=== PATIENT | male | born 1975 | race Caucasian/White ===

== ENCOUNTER 2023-05-09 07:57 | Inpatient (IN) ==
--- NOTE | 2023-04-20 10:46 | PAT Medication Instructions ---
Medication Instructions Date of Service April 20, 2023 Home Medications Medication Instructions Recorded oxycodone 5 mg tablet 5 mg PO Q6H PRN pain, severe #20 05/25/22 tabs tramadol 50 mg tablet 50 mg PO Q6H PRN pain, moderate 05/25/22 #20 tabs cyclobenzaprine 10 mg tablet 10 mg PO TID PRN muscle spasms levothyroxine 175 mcg tablet 175 mcg PO QAM mometasone 100 mcg/actuation HFA aerosol inhaler 2 puff inhalation QAM montelukast 10 mg tablet 10 mg PO QAM naproxen 500 mg tablet,delayed release 500 mg PO BID PRN Pain omeprazole 20 mg tablet,delayed release 20 mg PO QAM zolmitriptan 5 mg disintegrating tablet 5 mg PO UD PRN migraines oxycodone 5 mg tablet 5 mg PO Q6H PRN pain, severe tramadol 50 mg tablet 50 mg PO Q6H PRN pain, moderate albuterol sulfate 90 mcg/actuation breath activated powder inhaler 1 inh inhalation QID PRN Wheezing ASK your surgeon for instructions naproxen 500 mg tablet,delayed release 500 mg PO BID PRN Pain DO NOT take the morning of surgery cyclobenzaprine 10 mg tablet 10 mg PO TID PRN muscle spasms montelukast 10 mg tablet 10 mg PO QAM Take morning of surgery With a small sip of water, OTHERWISE NOTHING TO EAT OR DRINK AFTER MIDNIGHT: levothyroxine 175 mcg tablet 175 mcg PO QAM mometasone 100 mcg/actuation HFA aerosol inhaler 2 puff inhalation QAM omeprazole 20 mg tablet,delayed release 20 mg PO QAM zolmitriptan 5 mg disintegrating tablet 5 mg PO UD PRN migraines (if needed) oxycodone 5 mg tablet 5 mg PO Q6H PRN pain, severe (if needed) tramadol 50 mg tablet 50 mg PO Q6H PRN pain, moderate (if needed) albuterol sulfate 90 mcg/actuation breath activated powder inhaler 1 inh inhalation QID PRN Wheezing (use if needed; please bring rescue inhaler with you to hospital day of surgery if possible) Take evening before surgery cyclobenzaprine 10 mg tablet 10 mg PO TID PRN muscle spasms (if needed) zolmitriptan 5 mg disintegrating tablet 5 mg PO UD PRN migraines (if needed) oxycodone 5 mg tablet 5 mg PO Q6H PRN pain, severe (if needed) tramadol 50 mg tablet 50 mg PO Q6H PRN pain, moderate (if needed) albuterol sulfate 90 mcg/actuation breath activated powder inhaler 1 inh inhalation QID PRN Wheezing (if needed) Other Notes If you have any questions please call us at [phone] or [phone] or [phone] or [phone]
--- NOTE | 2023-04-25 09:36 | Anesthesiology Consultation ---
Date of Service April 25, 2023 Assessment & Plan (1) Encounter for pre-operative examination: - Check BSG AM DOS (Glucose elevated at 165 on preop labs. No reported hx of diabetes/prediabetes. Will recheck BSG DOS) - Infectious disease screening: Per assessment on 04/25/23: No known infectious disease contacts or current infectious disease symptoms. No noted Covid positive test result in past 90 days. - Right SI joint fusion (05/25/22): Grade view 1, MAC#4, ETT 7.5 at [facility] Chart Review Chart Review: Acceptable Risk for Surgery and Patient seen in Pre Admission Testing Teaching & Discussion Pre-Anesthesia Teaching/Discussion Notes: Instructed NPO after midnight before surgery,except medications with 15 cc of water. Medication instructions provided according to the PAT guidelines. History Surgery Operation Date: 05/09/23 09:25 Proposed Procedures p L4-L5 Decompression and Fusion, Spinal Cord Monitoring - Misha Sanz, Height/Weight Height: 6 ft Weight: 108.7 kg Allergies Allergy/AdvReac Type Severity Reaction Status Date / Time hydromorphone [From Dilaudid] AdvReac Intermediate Vomiting Verified 04/18/23 08:31 Medications Home Medications Medication Instructions Recorded Confirmed Last Taken cyclobenzaprine 10 mg tablet 10 mg PO TID PRN muscle spasms 05/19/22 04/18/23 05/23/22 levothyroxine 175 mcg tablet 175 mcg PO QAM 05/19/22 04/18/23 05/25/22 03:45 mometasone 100 mcg/actuation HFA 2 puff inhalation QAM 05/19/22 04/18/23 05/24/22 06:30 aerosol inhaler montelukast 10 mg tablet 10 mg PO QAM 05/19/22 04/18/23 05/25/22 03:30 naproxen 500 mg tablet,delayed 500 mg PO BID PRN Pain 05/19/22 04/18/23 5 Days Ago release ~05/20/22 omeprazole 20 mg tablet,delayed 20 mg PO QAM 05/19/22 04/18/23 05/25/22 03:30 release zolmitriptan 5 mg disintegrating 5 mg PO UD PRN migraines 05/19/22 04/18/23 3 Weeks Ago tablet ~05/04/22 oxycodone 5 mg tablet 5 mg PO Q6H PRN pain, severe #20 05/25/22 04/18/23 Unknown tabs tramadol 50 mg tablet 50 mg PO Q6H PRN pain, moderate 05/25/22 04/18/23 Unknown #20 tabs albuterol sulfate 90 mcg/actuation 1 inh inhalation QID PRN Wheezing 04/18/23 04/18/23 Unknown breath activated powder inhaler Past Medical History Medical History Asthma GERD (gastroesophageal reflux disease) [place] of [place] body aches, pain, sore throat, fatigue > resolved 2020 (tested at [facility] body aches, pain, sore throat, fatigue > resolved Hx of migraines Hypothyroidism Seasonal allergies Exercise / Class Metabolic Activity II 4-5 Yardwork/Stairs/Walk up hill (one FS (no CP, no SOB)) Past Surgical History Surgical History History of esophagogastroduodenoscopy (EGD) Hx of appendectomy Hx of colonoscopy Hx of exploratory laparotomy Appendectomy > nicked bowel complications, converted to open procedure to repair bowel perforation Hx of inguinal hernia repair Right Hx of tonsillectomy Hx of vasectomy + 2 reversals S/P fusion of sacroiliac joint Right SI joint fusion (05/25/22): Grade view 1, MAC#4, ETT 7.5 at [facility] Past Anesthesia History No Hx of Anesthesia Complications and No Family Hx of Anesthesia Complications History of PONV No Hx of PONV and No Hx of Motion Sickness Social History Smoking Status: Current every day smoker tobacco type: cigarettes Smoking cigarettes per day: 10-15 cigs per day Do You Dip or Chew Tobacco: No Hx Alcohol Use: Yes Alcohol type: beer alcohol intake frequency: holidays/special occasions only Hx Substance Use: No substance use type: does not use Review of Systems Occasional wheezing r/t asthma, unchanged/stable Patient denies chest pain, shortness of breath, dyspnea on exertion, fever, chills, cough, palpitations. Physical Exam Vital Signs VITALS BP 125/80 (baseline BP low-normal range per patient) P 93 TEMP 98.1 SP02 95%RA RESP 16 PHYSICAL Full cervical extension range of motion. Full TMJ range of motion. TMD 3 finger breaths Mallampati Score 3 Dentition: missing molars, + crowns (molars) Lungs: clear throughout to auscultation Cardiac: regular rate and rhythm, no murmurs noted Spine: normal Carotid arteries: negative bruit Extremities: no LE edema Lab Results Anesthesia Preop Results Results Anesthesia Widget: WBC 8.15 K/ul (4.8-10.8) 04/25/23 Hgb 14.9 g/dl (14.0-18.0) 04/25/23 Hct 44.0 % (42.0-52.0) 04/25/23 Plt 285 K/uL (130-400) 04/25/23 Na 140 mmol/L (136-145) 04/25/23 K 3.9 mmol/L (3.5-5.1) 04/25/23 Cl 108 mmol/L (98-107) H 04/25/23 CO2 25 mmol/L (21-32) 04/25/23 BUN 13 mg/dl (6-23) 04/25/23 Creat 0.95 mg/dl (0.6-1.4) 04/25/23 Glucose Level 165 mg/dl (70-99(Fasting)) H 04/25/23 PT 10.8 Seconds (9.0-12.0) 04/25/23 PTT 27.3 Seconds (21.0-31.0) 04/25/23 INR 1.0 (0.9-1.1) 04/25/23 Urine Color Yellow 04/25/23 Urine Appearance Clear (Clear) 04/25/23 Urine pH 7.5 (4.5-7.5) 04/25/23 Urine Specific [place] 1.011 (1.000-1.030) 04/25/23 Urine Protein Negative (Negative) 04/25/23 Urine Glucose (UA) Negative (Negative) 04/25/23 Urine Ketones Negative (Negative) 04/25/23 Urine Blood Negative (Negative) 04/25/23 Urine Nitrite Negative (Negative) 04/25/23 Urine Bilirubin Negative (Negative) 04/25/23 Urine Urobilinogen Negative (Negative) 04/25/23 Urine Leukocyte Esterase Negative (Negative) 04/25/23 Blood Type A Negative 04/25/23 Antibody Screen NEGATIVE 04/25/23 Testing Electrocardiogram Date: 05/13/22 NSR, rate 93 bpm Chest X-Ray Date: 05/13/22 No acute process
[~2023-05-09 07:57] MED LIST: ACETAMINOPHEN 500 MG TAB PO SCH; CeleBREX 200 MG CAP PO SCH; DEXAMETHASONE SOD INJ 4 MG/ML VIAL ONE; GABAPENTIN 900 MG DOSE PO SCH; LIDOCAINE 2% 2 ML VIAL/AMP(20MG/ML) INFIL ONE; LR 15ML/HR IV SCH; LR 60ML/HR IV SCH; MIDAZOLAM HCL 1 MG/ML 2ML VIAL ONE; ONDANSETRON INJ 2 MG/ML 2 ML VIAL ONE; PROPOFOL IV EMULSION 10 MG/ML 20 ML VIAL IV ONE; ROCURONIUM BROMIDE 10 MG/ML 5 ML VIAL IV ONE; SUGAMMADEX SODIUM 200 MG/2 ML VIAL IV ONE; ceFAZolin 2000MG 2,000 MG/15 ML SYR IV SCH; fentaNYL citrate PF 100 MCG/2 ML VIAL ONE
[2023-05-09] MEDS ORDERED: HYDROmorphone INJ 1 MG/ML SYRINGE IV PRN ×2 (11:23→17:05)
[2023-05-09] MEDS ORDERED: ATROPINE SULFATE 0.1 MG/ML 10ML SYR IV PRN (11:23)
[2023-05-09] MEDS ORDERED: ePHEDrine sulfate 50 MG/ML AMP IV PRN (11:23)
[2023-05-09] MEDS ORDERED: ONDANSETRON INJ 2 MG/ML 2 ML VIAL IV PRN ×2 (11:23→17:05)
--- NOTE | 2023-05-09 12:08 | History & Physical Bridge Note ---
Date of Service May 09, 2023 History & Physical Bridge Note I have examined the patient, reviewed the History & Physical and in the interval since the performance of the History & Physical I have noted the following changes of clinical significance: no changes noted
--- NOTE | 2023-05-09 12:09 | History & Physical Report ---
Date of Service May 09, 2023 Assessment & Plan (1) Neurogenic claudication due to lumbar spinal stenosis: Plan: L4-L5 decompression and fusion History of Present Illness Chief Complaint: Back and leg pain Primary Care Provider: [facility] This is a 48-year-old male who presents with chronic persistent back and leg pain after failing course of nonoperative care is here for surgical invention. Allergies Allergy/AdvReac Type Severity Reaction Status Date / Time No Known Allergies Allergy Unverified 05/09/23 08:18 Home Medications Medication Instructions Recorded Confirmed Type cyclobenzaprine 10 mg tablet 10 mg PO TID PRN muscle spasms 05/19/22 05/09/23 History levothyroxine 175 mcg tablet 175 mcg PO QAM 05/19/22 05/09/23 History mometasone 100 mcg/actuation HFA 2 puff inhalation QAM 05/19/22 05/09/23 History aerosol inhaler montelukast 10 mg tablet 10 mg PO QAM 05/19/22 05/09/23 History naproxen 500 mg tablet,delayed 500 mg PO BID PRN Pain 05/19/22 05/09/23 History release omeprazole 20 mg tablet,delayed 20 mg PO QAM 05/19/22 05/09/23 History release zolmitriptan 5 mg disintegrating 5 mg PO UD PRN migraines 05/19/22 05/09/23 History tablet oxycodone 5 mg tablet 5 mg PO Q6H PRN pain, severe #20 05/25/22 05/09/23 Rx tabs tramadol 50 mg tablet 50 mg PO Q6H PRN pain, moderate 05/25/22 05/09/23 Rx #20 tabs albuterol sulfate 90 mcg/actuation 1 inh inhalation QID PRN Wheezing 04/18/23 05/09/23 History breath activated powder inhaler Past Med/Surg History Medical History Asthma GERD (gastroesophageal reflux disease) [place] of [place] body aches, pain, sore throat, fatigue > resolved 2020 (tested at [facility] body aches, pain, sore throat, fatigue > resolved Hx of migraines Hypothyroidism Seasonal allergies Surgical History History of esophagogastroduodenoscopy (EGD) Hx of appendectomy Hx of colonoscopy Hx of exploratory laparotomy Appendectomy > nicked bowel complications, converted to open procedure to repair bowel perforation Hx of inguinal hernia repair Right Hx of tonsillectomy Hx of vasectomy + 2 reversals S/P fusion of sacroiliac joint Right SI joint fusion (05/25/22): Grade view 1, MAC#4, ETT 7.5 at [facility] Social History Smoking Status: Current every day smoker Tobacco Type: Cigarettes Cigarettes Per Day: 10-15 cigs per day; Second Hand Exposure: No; Do You Dip or Chew Tobacco: No; Tobacco Cessation Education Requested by Patient: No Hx Alcohol Use: Yes Alcohol type: beer Hx Substance Use: No Preferred Language: Marshallese Communication Ability: Effective Test Facility Engineer Required: No Beliefs That Will Affect Care: None Current Living Situation: Spouse Other Information That Helps Us Care for You: No Feels Safe at Home: Yes Safety Concerns: Feels Safe At This Time Assistive Devices: Glasses Physical Exam Physical Exam: Patient is alert and oriented Heart regular rhythm Lungs clear Results & Data Results & Data Vital Signs (Past 12 Hours) Vital Signs Temp Pulse Resp BP Pulse Ox O2 Del Method 05/09/23 08:18 36.5 C 97 H 18 139/91 95 Room Air
[2023-05-09] MEDS ORDERED: ceFAZolin 330 MG/ML 1 GM VIAL ONE (12:23)
[2023-05-09] MEDS ORDERED: BUPIVACAINE/EPINEPHRINE 0.25% 1:200,000 30 ML VIAL ONE (12:23)
[2023-05-09] MEDS ORDERED: HYDROmorphone INJ 2 MG/ML SYR/VIAL ONE (13:09)
[2023-05-09] MEDS ORDERED: FLOSEAL HEMOSTATIC MATRIX 10ML TOP ONE (14:04)
--- NOTE | 2023-05-09 14:22 | Operative Report ---
Post Operative Report Pre & Post Diagnosis Operation Date: 05/09/23 09:25 Pre-Op Diagnosis: Neurogenic Claudication Due to Lumbar Spinal Stenosis L4-L5 Post-Op Diagnosis: Neurogenic Claudication Due to Lumbar Spinal Stenosis L4-L5 I identified the patient and participated in the time-out.: Yes Procedure Operation Date: 05/09/23 09:25 Actual Procedures #1 lumbar decompression bilaterally facetectomies and foraminotomies L4-5 per #2 posterior spinal fusion L4-5 #3 placed posterior instrumentation L4-5.. #4 interbody fusion L4-5. #5 placement spiral 14 x 26 mm x 2 at L4-5. #6 placement of locally harvested morselized autograft and posterior gutters. #7 placement of I factor combined with the talus in the interbody space and posterior gutters.. Surgeon Misha Sanz, DO [employer] Stitcher oTri Omer Estimated Blood Loss 180 Findings See Below The patient is 6 foot tall weighing over 107 kg and BMI in excess of 32. The patient's body habitus did contribute to significant technical difficulty requiring her deepest retractors longer instruments in order to perform this procedure. This at least 50% increased operative time. Specimens None Indications This is a 48-year-old male who presents above-mentioned diagnosis of failed since course of nonoperative care is here for surgical invention. Description of Procedure Patient was met with identified informed consent obtained. Patient was then taken the operative suite underwent patient placed in a prone position the [facility] top Kristopher frame. All bony promises well-padded I suspected to ensure no external precipice spine. This point the lumbar spine was prepped and draped in a sterile fashion. Sharp dissection with the assistance of Bovie cautery to form down to and exposing the lamina and transverse processes of L4 and L5 bilaterally. From a caudal cephalad fashion complete laminectomy of L4 was performed including bilateral medial facetectomies and foraminotomies addressing all spinal stenosis. Pedicle screws were then placed in L4-5 bilaterally with assistance of fluoroscopy and appropriate size thais placed. By way of transforaminal approach on the right and discectomy L4-5 was performed endplates guarded to subcortical bleeding bone and a 14 x 26 mm Spira cage with I factor tapped in position. Then proceeded to the left transforaminal region completed the discectomy. Then placed to subcortical bleeding bone and placed a second 14 x 26 mm prior cage with I factor into position. The rods were then compressed locked in final position bilaterally. Transverse processes of L4-5 burred to subcortical bleeding bone. I factor combined with the talus and locally harvested morselized autograft placed in the posterior gutters. 15 round PETRA drain inserted. The incision was then closed with 1 Vicryl to fascia 2-0 Vicryl subcutaneously and 4 Monocryl for final skin closure. Steri-Strips sterile dressings placed. Patient waken taken to PACU in stable condition. Please note spinal cord monitoring was utilized at the procedure no changes noted. Lastly Tori Omer was present for critical components of the procedure. I attest to the content of the Intraoperative Record and any orders documented therein. Any exceptions are noted below.
--- NOTE | 2023-05-09 14:56 | Fluoroscopy Report ---
FL lumbar spine 2-3V CLINICAL HISTORY: L4-L5 DECOMP/FUSION COMPARISON STUDY: None. FLUOROSCOPY TIME: 20 seconds FLUOROSCOPY IMAGES: 4 Ka,r: 16.6 mGy FINDINGS: Posterior decompression and fusion with pedicle screws and rods at L4-L5. The hardware appe ars intact. Disc spacers are in place. Fusion hardware seen within the right sacroiliac joint. There is a surgical drain at the laminectomy site. No additional radiopaque foreign bodies identified. IMPRESSION: Fluoroscopic assistance provided for L4-L5 posterior decompression and fusion. The hardwa re appears intact. No additional radiopaque foreign bodies identified. ACT 112: Negative or not required by law. Electronically signed by: Kofi Delgadillo M.D. 05/09/2023 2:55 PM
[2023-05-09] MEDS ORDERED: ALBUT/IPRATROP 3MG/0.5MG NEB 3 ML VIAL NEB STA (15:23)
--- NOTE | 2023-05-09 15:23 | Anesthesiology Progress Note ---
Date of Service May 09, 2023 Anesthesia Post Procedure Vital Signs Vital Signs: Temp Pulse Resp BP Pulse Ox O2 Del Method O2 Flow Rate 05/09/23 15:20 95 H 13 113/91 94 Oxymask 9 05/09/23 15:10 95 H 12 124/78 97 Oxymask 9 05/09/23 15:00 95 H 12 138/107 H 93 Oxymask 9 05/09/23 14:53 36.1 C L 95 H 12 120/75 94 Oxymask 9 05/09/23 08:18 36.5 C 97 H 18 139/91 95 Room Air Pain Intensity Right Buttock: Pain Intensity: 4 Transfer of Care Handoff Completed per policy Notes Mental Status: alert / awake / arousable Patient Amnestic to Procedure: Yes Nausea / Vomiting: adequately controlled Pain: adequately controlled Airway Patency, RR, SpO2: stable & adequate BP & HR: stable & adequate Hydration State: stable & adequate Anesthetic Complications: no major complications apparent
[2023-05-09] MEDS ORDERED: ALBUT/IPRATROP 3MG/0.5MG NEB 3 ML VIAL ONE (15:24)
[2023-05-09] MEDS ORDERED: HYDROmorphone INJ 0.5 MG/0.5 ML SYR IV PRN (17:05)
[2023-05-09] MEDS ORDERED: PROMETHAZINE HCL 12.5 MG in SODIUM CHLORIDE 0.9% 50 ML IV PRN (17:05)
[2023-05-09] MEDS ORDERED: SOD PHOSPHATE/SOD BIPHOSPHATE ENEMA 132 ML BTL PR PRN (17:05)
[2023-05-09] MEDS ORDERED: LORazepam 0.5 MG TAB PO PRN (17:05)
[2023-05-09] MEDS ORDERED: diphenhydrAMINE Capsule 25 MG CAP PO PRN (17:05)
[2023-05-09] MEDS ORDERED: LORazepam 2 MG/1 ML VIAL IV PRN (17:05)
[2023-05-09] MEDS ORDERED: bisacodyL 10 MG SUPP PR PRN (17:05)
[2023-05-09] MEDS ORDERED: DO NOT ADMINISTER PNEUMOCOCCAL VACCINE PRN (17:05)
[2023-05-09] MEDS ORDERED: DO NOT ADMINISTER FLU VACCINE PRN (17:05)
[2023-05-09] MEDS ORDERED: METOCLOPRAMIDE HCL INJ 5 MG/ML 2 ML VIAL IV PRN (17:05)
[2023-05-09] MEDS ORDERED: NALOXONE HCL 0.4 MG/1 ML VIAL/CARP IV PRN (17:05)
[2023-05-09] MEDS ORDERED: hydrOXYzine HCl 25 MG TAB PO PRN (17:05)
[2023-05-09] MEDS ORDERED: ONDANSETRON 4 MG OD TAB PO PRN (17:05)
[2023-05-09] MEDS ORDERED: ZOLMITRIPTAN 5 MG PO PRN (17:05)
[2023-05-09] MEDS ORDERED: ALUMINUM/MAGNESIUM SUSP 30 ML UDC PO PRN (17:05)
[2023-05-09] MEDS ORDERED: MAGNESIUM HYDROXIDE SUSP 30 ML UDC PO PRN (17:05)
[2023-05-09] MEDS ORDERED: ACETAMINOPHEN 1,000 MG/100 ML VIAL IV PRN (17:05)
[2023-05-09] MEDS ORDERED: ALBUTEROL HFA 8 GM INHALER INH PRN (17:05)
[2023-05-09] MEDS: LACTATED RINGER'S 1,000 ML IV SCH ×2 (17:47→22:11)
[2023-05-09] MEDS: KETOROLAC 30 MG/ML VIAL IV SCH (18:26)
[2023-05-09] MEDS: dexAMETHasone 6 MG in SYRINGE 0 ML IV SCH (18:26)
[2023-05-09] MEDS: ceFAZolin 2000MG 2,000 MG/15 ML SYR IV SCH (20:18)
[2023-05-09] MEDS: DOCUSATE SODIUM/SENNA 50/8.6MG TAB PO SCH (20:18)
[2023-05-10] MEDS: KETOROLAC 30 MG/ML VIAL IV SCH ×3 (01:07→11:05)
[2023-05-10] MEDS: dexAMETHasone 6 MG in SYRINGE 0 ML IV SCH ×2 (01:07→09:35)
[2023-05-10] MEDS: POLYETHYLENE (MIRALAX) 17 GM PACK PO SCH ×2 (05:39→12:07)
[2023-05-10] MEDS: ceFAZolin 2000MG 2,000 MG/15 ML SYR IV SCH (05:39)
[2023-05-10] MEDS: LEVOTHYROXINE SODIUM 175 MCG TABLET PO SCH (05:39)
[2023-05-10] MEDS: MONTELUKAST SODIUM 10 MG TABLET PO SCH (07:48)
[2023-05-10] MEDS: PANTOprazole 40 MG TAB PO SCH (07:48)
[2023-05-10] MEDS: FLUTICASONE FUROATE 100MCG 14 PUFFS/INHALER INH SCH (07:49)
[2023-05-10 08:12] LABS: Basophils # (auto) 0.01 K/uL (0.00-0.20); Basophils % (auto) 0.1 %; Hemoglobin 12.8 g/dl (14.0-18.0); Immature Granulocytes # (auto) 0.11 K/uL (0.01-0.20); Immature Granulocytes % (auto) 0.6 %; Lymphocytes # (auto) 1.38 K/uL (1.20-3.40); Lymphocytes % (auto) 7.4 %; Mean Corpuscular Hemoglobin 29.8 pg (25.0-34.0); Mean Corpuscular Hgb Conc 33.7 g/dL (32.0-36.0); Mean Corpuscular Volume 88.6 fL (80.0-100.0); Mean Platelet Volume 9.6 fL (9.4-12.4); Monocytes # (auto) 0.76 K/uL (0.11-0.59); Monocytes % (auto) 4.1 %; Neutrophils # (auto) 16.45 K/uL (1.40-6.50); Neutrophils % (auto) 87.8 %; Platelet Count 316 K/uL (130-400); RDW Coefficient of Variation 12.6 % (11.5-14.5); RDW Standard Deviation 41.1 fL (36.4-46.3); Red Blood Count 4.29 M/uL (4.70-6.10); White Blood Count 18.71 K/ul (4.8-10.8)
[2023-05-10 08:43] LABS: BUN Creatinine Ratio 12.8 (10-20); Calcium 8.9 mg/dl (8.6-10.3); Creatinine Clr Calc Pharmacy 104.8 ml/min; Est GFR (African American) 92.5 ml/min; Est GFR (Non-African American) 79.8 ml/min; Potassium 4.4 mmol/L (3.5-5.1)
[2023-05-10] MEDS: ACETAMINOPHEN 500 MG TAB PO PRN ×2 (12:07→21:04)
--- NOTE | 2023-05-10 13:19 | Orthopedic Progress Note ---
Date of Service May 10, 2023 Assessment & Plan (1) Neurogenic claudication due to lumbar spinal stenosis: Plan: We will continue physical therapy monitor his PETRA output anticipate discharge home in the next few days. Admission and Anticipated Discharge Date Admission Date: May 09, 2023 Subjective Back pain controlled leg pain markedly improved Physical Exam Physical Exam: Patient is currently in bed. Is comfortable is constricted testing. Results & Data Vital Signs (Past 12 Hours) Vital Signs Temp Pulse Resp BP Pulse Ox O2 Del Method O2 Flow Rate 05/10/23 12:01 36.8 C 114 H 18 135/72 95 Nasal Cannula 3 05/10/23 11:26 Nasal Cannula 3 05/10/23 08:11 36.8 C 116 H 18 109/69 94 Nasal Cannula 3 05/10/23 03:35 36.6 C 106 H 18 124/68 93 Nasal Cannula 3 Queries Orthopedic Spine Obesity: Yes
[2023-05-10] MEDS: NICOTINE 21 MG/24 HR TDSY TD SCH (16:30)
[2023-05-10] MEDS ORDERED: RIZATRIPTAN BENZOATE 10 MG TAB PO PRN (16:51)
[2023-05-10] MEDS: DOCUSATE SODIUM/SENNA 50/8.6MG TAB PO SCH (21:04)
[2023-05-10] MEDS: oxyCODONE HCL IR 5 MG TAB (IMMEDIATE RELEASE) PO PRN (21:04)
[2023-05-11] MEDS: oxyCODONE HCL IR 5 MG TAB (IMMEDIATE RELEASE) PO PRN ×2 (02:06→09:25)
[2023-05-11] MEDS: FAMOTIDINE 20 MG TAB PO PRN (05:30)
[2023-05-11] MEDS: LEVOTHYROXINE SODIUM 175 MCG TABLET PO SCH (05:30)
[2023-05-11] MEDS: MONTELUKAST SODIUM 10 MG TABLET PO SCH (09:25)
[2023-05-11] MEDS: FLUTICASONE FUROATE 100MCG 14 PUFFS/INHALER INH SCH (09:25)
[2023-05-11] MEDS: PANTOprazole 40 MG TAB PO SCH (09:26)
[2023-05-11] MEDS: NICOTINE 21 MG/24 HR TDSY TD SCH (09:26)
[2023-05-11] MEDS: ACETAMINOPHEN 500 MG TAB PO PRN ×2 (09:26→17:43)
--- NOTE | 2023-05-11 10:03 | Orthopedic Progress Note ---
Date of Service May 11, 2023 Assessment & Plan (1) Neurogenic claudication due to lumbar spinal stenosis: Plan: At this time continue physical therapy monitor his PETRA output anticipate discharge home tomorrow. Admission and Anticipated Discharge Date Admission Date: May 09, 2023 Subjective Patient's back pain is controlled leg pain markedly improved Physical Exam Physical Exam: On exam patient is in the chair at the bedside. Is comfortable. Discussed when to testing. Results & Data Vital Signs (Past 12 Hours) Vital Signs Temp Pulse Resp BP Pulse Ox O2 Del Method 05/11/23 07:36 36.4 C L 85 16 143/79 H 96 Room Air Queries Orthopedic Spine Obesity: Yes
[2023-05-11] MEDS ORDERED: LORazepam 0.5 MG in SYRINGE 0.25 ML IV PRN (13:20)
[2023-05-11] MEDS: traMADol HCL 50 MG TABLET PO PRN ×2 (14:51→19:45)
[2023-05-11] MEDS: DOCUSATE SODIUM/SENNA 50/8.6MG TAB PO SCH (19:46)
[2023-05-12] MEDS: traMADol HCL 50 MG TABLET PO PRN (04:40)
[2023-05-12] MEDS: FAMOTIDINE 20 MG TAB PO PRN (05:23)
[2023-05-12] MEDS: LEVOTHYROXINE SODIUM 175 MCG TABLET PO SCH (05:24)
[2023-05-12] MEDS: MONTELUKAST SODIUM 10 MG TABLET PO SCH (08:37)
[2023-05-12] MEDS: PANTOprazole 40 MG TAB PO SCH (08:37)
[2023-05-12] MEDS: ACETAMINOPHEN 500 MG TAB PO PRN (08:37)
[2023-05-12] MEDS: FLUTICASONE FUROATE 100MCG 14 PUFFS/INHALER INH SCH (08:38)
[2023-05-12] MEDS: NICOTINE 21 MG/24 HR TDSY TD SCH (08:56)
--- NOTE | 2023-05-12 10:35 | Discharge Summary ---
Date of Service May 12, 2023 Admission HPI Per Admitting Provider This is a 48-year-old male who presents with chronic persistent back and leg pain after failing course of nonoperative care is here for surgical invention. Principal Diagnosis Lumbar spinal stenosis with neurogenic claudication Discharge Data Allergies Allergy/AdvReac Type Severity Reaction Status Date / Time No Known Allergies Allergy Unverified 05/09/23 08:18 Procedures Performed Operation Date: 05/09/23 09:25 Actual Procedures p L4-L5 Decompression and Fusion, Interbody Fusion, with Application of Bone Morphogenetic Protein and MagnetOs Bone Graft, Spinal Cord Monitoring(Not Applicable) - Misha Sanz DO Ordered Studies 05/09/23 [place] lumbar spine 2-3V Stat Hospital Course (1) Neurogenic claudication due to lumbar spinal stenosis: Patient with lumbar decompression fusion tolerated this well was taken to the orthopedic floor postoperative. Postop day he was up and ambulating PETRA drain decreasing appropriate. Pain well controlled. Extra strength testing. Subsidy discharged home. Discharge orders instructions from the chart for further review. Total Time Total Time Spent Total Time Spent (In Minutes): 20 minutes Discharge Plan Discharge Items Patient Disposition: Home - Self-Care Reason For Visit: POSTOP Discharge Diagnosis: Lumbar spinal stenosis with neurogenic claudication Activity: As commented below Non-emergency contact: Primary Care Provider Call non-emergency contact if: you have any medication questions Follow-up/Referrals: [facility] [Primary Care Provider] - Diet: Regular Addtl Attending Provider Instructions: ACTIVITY RECOMMENDATIONS: SELF CARE INSTRUCTIONS AFTER THORACIC/LUMBAR FUSIONS 1. You may walk to your tolerance. It is good exercise for your legs and back. Expect some back and intermittent leg aches and pains. 2. You may perform "counter-top" level activities (make a sandwich, gab with a project, etc.). 3. No bending or lifting of more than 10 pounds or back twisting of any nature (roll like a log when turning in bed). 4. You may ride in a car for 20-30 minutes at a time. No driving until after your first visit with your doctor. 5. Frequent changes of position and restricting sitting to 30 minutes at a time will help limit the amount of back spasms and stiffness you may experience. 6. You may discontinue the use of ambulatory aids (cane, crutches, etc.) once your strength and confidence allow. 7. 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 Do not take a tub bath, sit in a hot tub or go into a swimming pool until after your first recheck in the office. SPECIAL CARE INSTRUCTIONS: VERY IMPORTANT TO READ AND REVIEW A. Your surgical incision has been closed with a cosmetic suture under the skin that will dissolve in about 6 weeks. In 14 days, you can use a pair of clean scissors and cut the suture that is left outside of the skin at the ends of your incision. 1. The small skin tapes can be removed 7 days after surgery if they have not fallen off by that point. 2. You may keep the wound open to air as much as possible to promote healing after post-op day number 5 unless told otherwise by your doctor. 3. If you think the wound looks like it is becoming infected (redness or worsening drainage) and/or you are experiencing fever, chill or worsening back pain and muscle spasms, contact the office so that we may evaluate you as soon as possible. B. Complications are uncommon, but please contact us if you have any signs or symptoms of: 1. wound infection (fever higher than 102.5 degrees F, redness, separation of wound, drainage, or increasing pain from the incision) 2. blood clots in legs (pain, swelling, redness and warmth in legs) 3. urinary tract infection (fever higher than 102.5 degrees F, burning upon urination or increased frequency of urination) 4. nerve problems (inability to walk on your toes or heels, numbness, loss of bowel or bladder control) 5. any other symptoms that concern you C. Please call the office at if you have any concerns or questions about your operation or recovery. D. No smoking! Smoking drastically decreases the chance of a solid fusion. E. Do not take any anti-inflammatory medications (Indocin, Advil, Motrin, Aspirin, Naprosyn, etc.) as these may inhibit the chance of a solid fusion. Tylenol is okay to take for pain. MANAGING PAIN AFTER SPINAL SURGERY 1. Narcotic medication is intended for short-term use and will be provided for surgical pain. Surgical pain usually lasts for a period of 4-6 weeks. Narcotic medication includes Percocet, Vicodin, Darvocet, Tylenol #3 or Lortab. 2. Longer-term pain is more appropriately treated with non-narcotic medication such as Tylenol ES. 3. Muscle spasm is not appropriately treated with narcotics. Muscle relaxers such as Soma, Flexeril or Skelaxin can be used along with Tylenol ES. 4. Remember that we all live with some "aches and pains". This is not unusual or uncommon after an injury or as we get older. a. Back pain is expected and may include muscle spasms for 4 to 6 weeks after surgery. The pain should gradually improve. If the pain worsens for no apparent reason, please contact the office. b. Intermittent leg pain may also be experienced and should not be concerned about unless it worsens for no apparent reason. If so, please contact the office. 5. We will provide appropriate medication within the normal guidelines of their prescribed use. We will also be very cautious and aware of potential abuse and extended duration of patients' medication needs. a. Pain medications are for your comfort and to assist with sleep and rest so that the tissue can heal. They are not provided in order to return to normal activity and should not be used through the day. To do so or worsening pain at night can result from ongoing tissue damage and development of tolerance to the prescribed medicine. 6. Please allow 2-3 days to process refills. Prescriptions will not be mailed but must be picked up at the office. FOLLOW UP VISIT: Keep your scheduled follow-up appointment. Any questions, please call the office at . Pending Studies at Discharge: No Stand-Alone Forms: [facility] [employer], Smoking Cessation Medications and DC Order Prescriptions: New tramadol 50 mg tablet 50 mg PO Q6H PRN (Reason: pain, moderate) Qty: 30 0RF oxycodone 5 mg tablet 5 mg PO Q6H PRN (Reason: pain) Qty: 30 0RF Continued albuterol sulfate 90 mcg/actuation Aerosol Powdr Breath Activated 1 inh INHALATION QID PRN (Reason: Wheezing) cyclobenzaprine 10 mg Tablet 10 mg PO TID PRN (Reason: muscle spasms) levothyroxine 175 mcg Tablet 175 mcg PO QAM zolmitriptan 5 mg Tablet,Disintegrating 5 mg PO UD PRN (Reason: migraines) naproxen 500 mg Tablet,Delayed Release (Dr/Ec) 500 mg PO BID PRN (Reason: Pain) montelukast 10 mg Tablet 10 mg PO QAM omeprazole 20 mg Tablet,Delayed Release (Dr/Ec) 20 mg PO QAM mometasone 100 mcg/actuation Hfa Aerosol Inhaler 2 puff INHALATION QAM tramadol 50 mg tablet 50 mg PO Q6H PRN (Reason: pain, moderate) Qty: 20 0RF oxycodone 5 mg tablet 5 mg PO Q6H PRN (Reason: pain, severe) Qty: 20 0RF Discharge Orders: Discharge Order (Routine); Ordered 05/12/23 Ordered By: Misha Sanz Admission Data Admit Date/Time: 05/09/23 14:26 Attending Provider: Misha Sanz Admit Provider: Misha Sanz Primary Care Provider: [facility]
[2023-05-12] MEDS: oxyCODONE HCL IR 5 MG TAB (IMMEDIATE RELEASE) PO PRN (10:58)
== END 2023-05-12 12:08 | disposition home or self-care (01) | DRG 455 ==
LOC: ASU 07:57 → 3N 14:26